=== PATIENT | female | born 1960 | race African-American/Black ===

== ENCOUNTER 2021-04-12 07:27 | Emergency (ER) | payer OTHER ==
[2021-04-12 07:56] VITALS: BP 126/67; PULSE 76; TEMP 98.2; BMI 42.9
[2021-04-12] MEDS ORDERED: ACETAMINOPHEN 500 MG TABLET (FP) PO ONE (09:21)
[2021-04-12] MEDS ORDERED: ACETAMINOPHEN 500 MG TABLET (FP) ONE (09:59)
== END 2021-04-12 12:15 ==
LOC: JER 07:27
DX: R53.1 Weakness (principal); W06.XXXA Fall from bed, initial encounter
CPT/HCPCS: 99283-25

== ENCOUNTER 2025-02-09 17:04 | Emergency (ER) | payer OTHER ==
[2025-02-09 17:28] VITALS: BMI 42.8
[2025-02-09 18:41] LABS: BASOPHILS # 0.06 x10^3/uL (0.01-0.08); EOSINOPHIL % 0.3 % (0.7-5.8); EOSINOPHILS # 0.03 x10^3/uL (0.04-0.36); MCHC 30.7 g/dl (32.2-35.5); MEAN PLT VOLUME 11.6 fl (9.4-12.3)
[2025-02-09 18:42] LABS: ABSOLUTE IMMATURE GRANULOCYTES 0.04 x10^3/uL (0.0-0.031); MEAN CELL VOLUME 88.2 fl (79.4-94.8); MONOCYTE # 0.59 x10^3/uL (0.24-0.86); MONOCYTE % 5.3 % (4.7-12.5); RDW 12.0 % (12.4-16.4)
[2025-02-09 19:41] LABS: URINE APPEARANCE CLEAR; URINE COLOR YELLOW; URINE GLUCOSE (UA) TRACE (NEGATIVE)
[2025-02-09 19:42] LABS: URINE BILIRUBIN NEGATIVE (NEGATIVE); URINE KETONE NEGATIVE (NEGATIVE); URINE LEUK ESTERASE NEGATIVE (NEGATIVE); URINE NITRITE NEGATIVE (NEGATIVE); URINE PROTEIN 1+ (NEGATIVE); URINE UROBILINOGEN 1.0 mg/dL (0.2-1.0)
[2025-02-09 20:11] LABS: GLUCOSE,RANDOM 185.0 mg/dL (74-106); TOT PROT 8.3 g/dl (6.4-8.2)
[2025-02-09 20:12] LABS: CO2 25.0 mmol/L (21-32)
[2025-02-09 20:14] LABS: ALK PHOS 116.0 U/L (40-150)
[2025-02-09 20:16] LABS: SGOT/AST 114.0 U/L (5-34); SGPT/ALT 26.0 U/L (0-55)
[2025-02-09 20:17] LABS: CREATININE 1.33 mg/dL (0.55-1.3)
[2025-02-09 20:37] LABS: HIV INTERPRETATION NEGATIVE (NEGATIVE)
[2025-02-09 20:38] LABS: HCV DIAGNOSTIC IN-HOUSE W/RFLX NON-REACTIVE (NONREACTIVE)
[2025-02-09] MEDS ORDERED: ASPIRIN 81 MG CHEWABLE TABLETS ONE (20:53)
[2025-02-09] MEDS: ASPIRIN 81 MG CHEWABLE TABLETS PO ONE (20:57)
[2025-02-09] MEDS ORDERED: HEPARIN INFUSION - 25,000 UNITS/500 ML INFUS.BAG ONE (21:10)
[2025-02-09] MEDS ORDERED: HEPARIN NA (PORCINE) 5,000 UNITS/ML 1ML VIAL IVPUSH PRN ×2 (21:12)
[2025-02-09] MEDS: HEPARIN NA (PORCINE) 5,000 UNITS/ML 1ML VIAL IVPUSH ONE (21:24)
[2025-02-09] MEDS: HEPARIN INFUSION - 25,000 UNITS/500 ML INFUS.BAG IVPB SCH (21:26)
[2025-02-09] MEDS ORDERED: CLOPIDOGREL BISULFATE 300 MG TABLET ONE (21:33)
[2025-02-09 21:36] LABS: INR 1.29 (0.83-1.09); PROTHROMBIN TIME (PATIENT) 14.1 SEC (9.7-13.0)
[2025-02-09] MEDS: CLOPIDOGREL BISULFATE 300 MG TABLET PO ONE (21:36)
[2025-02-09 21:39] LABS: ACTIVATED PTT 31.8 SECONDS (25.2-36.5)
[2025-02-09 23:38] VITALS: BP 150/88; PULSE 83; RESP 16; TEMP 99.3
== END 2025-02-09 23:44 | disposition short-term general hospital (02) ==
LOC: JER 17:04
PROC: 3E033GC Introduction of Other Therapeutic Substance into Peripheral Vein, Percutaneous Approach (ICD-10-PCS; principal; 2025-02-09)
DX: R51.9 Headache, unspecified (principal); M54.9 Dorsalgia, unspecified; R06.2 Wheezing; M79.602 Pain in left arm; M79.605 Pain in left leg; M79.672 Pain in left foot
CPT/HCPCS: 36415; 71045-TC-FY; 80053; 81003; 83735; 84484; 85025; 85610; 85730; 86803; 86850; 86900; 86901; 87086; 87389; 93005; 93010; 99285-25; J1644